=== PATIENT | male | born 1950 | race Caucasian/White ===

== ENCOUNTER 2016-07-22 15:26 | Inpatient (IN) | payer OTHER ==
[2016-07-22 16:48] VITALS: BMI 22.5
--- NOTE | 2016-07-22 17:16 | HP ---
CIWA Score - CIWA Score Nausea/Vomitin-Mild Nausea/No Vomiting Muscle Tremors: 4-Moderate,w/Arms Extend Anxiety: 4-Mod. Anxious/Guarded Agitation: 4-Moderately Restless Paroxysmal Sweats: 2 Orientation: 3-Disoriented Date>2 days Tacttile Disturbances: 0-None Auditory Disturbances: 0-None Visual Disturbances: 0-None Headache: 2-Mild CIWA-Ar Total Score: 20 Admission ROS BHS - HPI Chief Complaint: WITHDRAWAL SX Allergies/Adverse Reactions: Allergies Allergy/AdvReac Type Severity Reaction Status Date / Time No Known Allergies Allergy Verified 07/22/16 17:06 History of Present Illness: 66 YEARS OLD MALE WITH LONG HISTORY OF ALCOHOL NICOTINE DEPENDENCE, HYPERTENSION DEPRESSION IS ADMITTED TO DETOX Exam Limitations: No Limitations - Ebola screening Have you traveled outside of the country in the last 21 days: No Have you had contact with anyone from an Ebola affected area: No Have you been sick,other than usual withdrawal symptoms: No Do you have a fever: No - Review of Systems Constitutional: Chills, Changes in sleep, Weight Stable EENT: reports: No Symptoms Reported Respiratory: reports: No Symptoms reported Cardiac: reports: Palpitations GI: reports: Nausea, Poor Fluid Intake, Indigestion, Abdominal cramping : reports: No Symptoms Reported Musculoskeletal: reports: Back Pain Integumentary: reports: Rash (GENERAL WHOLE BODY) Neuro: reports: Tremors Endocrine: reports: No Symptoms Reported Hematology: reports: No Symptoms Reported Psychiatric: reports: Judgement Intact, Depressed Other Systems: Reviewed and Negative Patient History - Patient Medical History Hx Anemia: No Hx Asthma: No Hx Chronic Obstructive Pulmonary Disease (COPD): No Hx Cancer: No Hx Cardiac Disorders: No Hx Congestive Heart Failure: No Hx Hypertension: Yes Hx Hypercholesterolemia: No Hx Pacemaker: No HX Cerebrovascular Accident: No Hx Seizures: No Hx Dementia: No Hx Diabetes: No Hx Gastrointestinal Disorders: No Hx Liver Disease: No Hx Genitourinary Disorders: No Hx Sexually Transmitted Disorders: No Hx Renal Disease (ESRD): No Hx Thyroid Disease: No Hx Human Immunodeficiency Virus (HIV): No Hx Hepatitis C: No Hx Depression: Yes Hx Suicide Attempt: No Hx Bipolar Disorder: No Hx Schizophrenia: No - Patient Surgical History Past Surgical History: No - PPD History Previous Implant?: Yes Documented Results: Negative w/o proof Implanted On Prior [facility] Admission?: No PPD to be Administered?: Yes - Smoking Cessation Smoking history: Current every day smoker Have you smoked in the past 12 months: Yes Aproximately how many cigarettes per day: 10 Cigars Per Day: 0 Hx Chewing Tobacco Use: No Initiated information on smoking cessation: Yes 'Breaking Loose' booklet given: 07/22/16 - Substance & Tx. History Hx Alcohol Use: Yes Hx Substance Use: No Substance Use Type: Alcohol Hx Substance Use Treatment: Yes - Substances Abused Alcohol Route: Oral Frequency: Daily Amount used: LIQUOR- 2 PINTS Age of first use: 19 Date of Last Use: 07/22/16 Family Disease History - Family Disease History Family Disease History: Respiratory: Grandparent (), Other: Father (NO CONTACT), Mother () Other Family History: ONLY CHILD Admission Physical Exam S - Vital Signs Vital Signs: Vital Signs - 24 hr 07/22/16 16:44 Temperature 97.4 F L Pulse Rate 115 H Respiratory 16 Rate Blood Pressure 158/94 - Physical General Appearance: Yes: Appropriately Dressed, Moderate Distress, Alcohol on Breath, Thin, Tremorous, Irritable, Sweating, Anxious HEENTM: Yes: Hearing grossly Normal, Normal ENT Inspection, Normocephalic, Normal Voice Respiratory: Yes: Chest Non-Tender, Lungs Clear, Normal Breath Sounds, No Respiratory Distress, No Accessory Muscle Use Neck: Yes: Supple, Trachea in good position Breast: Yes: Breasts Symetrical Cardiology: Yes: Regular Rhythm, S1, S2, Tachycardia Abdominal: Yes: Non Tender, Soft Genitourinary: Yes: Within Normal Limits Back: Yes: Normal Inspection Musculoskeletal: Yes: full range of Motion, Gait Steady Extremities: Yes: Non-Tender, Tremors Neurological: Yes: Alert, Motor Strength 5/5, Normal Response, Depressed Affect Integumentary: Yes: Warm, Rash Lymphatic: Yes: Within Normal Limits - Diagnostic (1) Alcohol dependence with uncomplicated withdrawal Current Visit: Yes Status: Acute (2) Nicotine dependence Current Visit: Yes Status: Acute Qualifiers: Nicotine product type: cigarettes Substance use status: uncomplicated Qualified Code(s): F17.210 - Nicotine dependence, cigarettes, uncomplicated (3) Hypertension Current Visit: Yes Status: Acute Qualifiers: Hypertension type: essential hypertension Qualified Code(s): I10 - Essential (primary) hypertension (4) Arthritis Current Visit: Yes Status: Acute Comment: KNEES AND HIPS (5) Depression Current Visit: Yes Status: Suspected (6) Weight loss Current Visit: Yes Status: Acute Comment: MOTHER 3 YEARS AGO SEVERE DEPRESSION - 106 LBS X 01/2016 - TREATED AT [facility] (7) Anemia Current Visit: Yes Status: Chronic Qualifiers: Anemia type: iron deficiency (8) Cardiac mass Current Visit: Yes Status: Chronic Comment: NO TREATMENT (9) S/P coronary angiogram Current Visit: Yes Status: Resolved Comment: RESULT UNKNOWN (10) Dermatitis Current Visit: Yes Status: Acute Comment: HYDROCORTISON + EUCERIN AMMONIA PENDING (11) History of blood clots Current Visit: Yes Status: Resolved Comment: TREATED WITH "BLOOD THINER" 01/2016 INR PENDING (12) History of low potassium Current Visit: Yes Status: Resolved Comment: TREATED WITH POTASSIUM 01/2016 (13) Magnesium deficiency Current Visit: Yes Status: Resolved Comment: TREATED WITH MAGNESIUM 01/2016 Cleared for Admission [facility] - Detox or Rehab [facility] Level of Care: Medically Managed Detox Regimen/Protocol: Librium [facility] Breath Alcohol Content Breath Alcohol Content: 0.247 Vital Signs - Vital Signs Vital Signs Refused: No Temperature Source: Oral Pulse Rate: 115 Respiratory Rate: 16 Blood Pressure: 158/94 BP Location: Left Arm Blood Pressure Position: Sitting - Height Height: 5 ft 8 in - Weight Weight: 148 lb Weight Measurement Method: Standing Scale Body Mass Index (BMI): 22.5 - Bowel Function Bowel Movement: No Urine Drug Screen - Control Is Test Valid: Yes - Results Drug Screen Negative: Yes
[2016-07-22] MEDS ORDERED: MAGNESIUM HYDROX 2400MG/30ML ORAL SUSPENSION 30 ML CUP PO PRN (17:24)
[2016-07-22] MEDS ORDERED: MAGNESIUM CITRATE 300 ML BOTTLE PO PRN (17:24)
[2016-07-22] MEDS ORDERED: chlordiazePOXIDE HCL 25 MG CAPSULE PO PRN (17:24)
[2016-07-22] MEDS ORDERED: P-EPHED 60MG/TRIPROLIDI 2.5MG TABLET PO PRN (17:24)
[2016-07-22] MEDS ORDERED: MAG HYDROX/AL HYDROX/SIMETH 30 ML UNIT-DOSE CUP PO PRN (17:24)
[2016-07-22] MEDS ORDERED: LOPERAMIDE HCL 2 MG CAPSULE PO PRN (17:24)
[2016-07-22] MEDS ORDERED: MENTHOL/PHENOL 1 EACH UD MM PRN (17:24)
[2016-07-22] MEDS ORDERED: hydrOXYzine PAMOATE 50 MG CAPSULE (FP) PO PRN (17:24)
[2016-07-22] MEDS ORDERED: NICOTINE POLACRILEX 2 MG GUM BUC PRN (17:24)
[2016-07-22] MEDS ORDERED: guaiFENesin/D-METHORPHAN HB 10 ML UNIT-DOSE CUPS PO PRN (17:24)
[2016-07-22] MEDS ORDERED: ACETAMINOPHEN 325 MG TABLET (FP) PO PRN (17:24)
[2016-07-22] MEDS ORDERED: COLLOIDAL OATMEAL 1 BAR EACH TP PRN (17:31)
[2016-07-22] MEDS ORDERED: cloNIDine HCL 0.1 MG TABLET PO PRN (17:44)
[2016-07-22] MEDS ORDERED: chlordiazePOXIDE HCL 25 MG CAPSULE PO ONE (18:15)
[2016-07-22] MEDS: HYDROCORTISONE 1% TOPICAL OINT 30 GM TUBE TP SCH ×2 (21:02→21:09)
[2016-07-22] MEDS: RANITIDINE HCL 150 MG TABLET (FP) PO SCH (21:08)
[2016-07-22] MEDS: amLODIPine BESYLATE 5 MG TABLET (FP) PO SCH (21:08)
[2016-07-22] MEDS: THIAMINE HCL 100 MG TABLET (FP) PO SCH (21:08)
[2016-07-22] MEDS: chlordiazePOXIDE HCL 25 MG CAPSULE PO SCH ×2 (22:01→23:05)
[2016-07-22] MEDS: diphenhydrAMINE HCL 50 MG CAPSULE PO PRN (22:05)
[2016-07-23] MEDS: chlordiazePOXIDE HCL 25 MG CAPSULE PO SCH ×4 (05:43→22:22)
[2016-07-23] MEDS ORDERED: SELENIUM SULFIDE 2.5% LOTION 4 OZ. TP SCH (10:00)
[2016-07-23] MEDS: PRENATAL VITAMINS W/ FOLIC ACID TABLET (FP) PO SCH (10:22)
[2016-07-23] MEDS: amLODIPine BESYLATE 5 MG TABLET (FP) PO SCH ×2 (10:23→22:22)
[2016-07-23] MEDS: RANITIDINE HCL 150 MG TABLET (FP) PO SCH (10:23)
[2016-07-23] MEDS: NICOTINE 14 MG/24 HOURS TOPICAL PATCH TD SCH (10:24)
[2016-07-23] MEDS: HYDROCORTISONE 1% TOPICAL OINT 30 GM TUBE TP SCH ×4 (10:24→22:22)
[2016-07-23] MEDS: ASPIRIN 81 MG CHEWABLE TABLETS PO SCH (10:25)
[2016-07-23 10:54] LABS: MCH 32.9 pg (25.7-33.7); MCHC 33.4 g/dl (32.0-35.9); MEAN CELL VOLUME 98.6 fl (80-96); MEAN PLT VOLUME 8.9 fl (7.5-11.1); PLATELET COUNT 134 K/MM3 (134-434); RDW 16.3 % (11.9-15.9); WHITE BLOOD COUNT 8.2 K/mm3 (4.0-10.0)
[2016-07-23 11:09] LABS: INR 0.86 (0.82-1.09); PROTHROMBIN TIME (PATIENT) 9.4 SEC (9.98-11.88)
[2016-07-23 11:14] LABS: ALBUMIN 3.2 g/dl (3.4-5.0); BILIRUBIN,TOTAL 0.9 mg/dL (0.2-1.0); CALCIUM 8.8 mg/dL (8.5-10.1); CREATININE 1.5 mg/dL (0.7-1.3); TOT PROT 6.6 g/dl (6.4-8.2)
--- NOTE | 2016-07-23 13:21 | CONSULT ---
[facility] Psychiatric Consult - Data Date of interview: 07/23/16 Admission source: [facility] Identifying data: First admission to [facility] for this 66 y/o male seeking detox treatment on for alcohol dependence.Patient is single without children,homeless,unemployed and supported on Social Security/Pension benefits. Substance Abuse History: - Smoking Cessation. Smoking history: Current every day smoker. Have you smoked in the past 12 months: Yes. Aproximately how many cigarettes per day: 10. Cigars Per Day: 0. Hx Chewing Tobacco Use: No. Initiated information on smoking cessation: Yes. 'Breaking Loose' booklet given : 07/22/16. - Substance & Tx. History. Hx Alcohol Use: Yes. Hx Substance Use : No. Substance Use Type: Alcohol. Hx Substance Use Treatment: Yes. - Substances Abused. Alcohol. Route: Oral. Frequency: Daily. Amount used: LIQUOR- 2 PINTS. Age of first use: 19. Date of Last Use: 07/22/16. Confirmed by patient. Medical History: Significant for a history of hypertension,GERD and arthritis. Psychiatric History: Patient denies history of psychiatric illness.He indicates that he sees a therapist at a clinic,in the community,for psychotherapy.Not on psychotropic medications.Mr Sheets states that he gets " counseling " for anxiety and depression." He declines option of psychopharmacotherapy.No history of suicide attempts. Physical/Sexual Abuse/Trauma History: Patient denies. Additional Comment: Drug Screen Negative: Yes Mental Status Exam - Mental Status Exam Alert and Oriented to: Time, Place, Person Cognitive Function: Good Patient Appearance: Unkempt, Disheveled Mood: Hopeful, Euthymic Affect: Appropriate, Normal Range Patient Behavior: Fatigued, Appropriate, Cooperative Speech Pattern: Clear, Appropriate Voice Loudness: Normal Thought Process: Goal Oriented Thought Disorder: Not Present Hallucinations: Denies Suicidal Ideation: Denies Homicidal Ideation: Denies Insight/Judgement: Fair Sleep: Well Appetite: Good Muscle strength/Tone: Normal Gait/Station: Normal Psychiatric Findings - Problem List ([place] 1, 2,3) (1) Alcohol dependence with uncomplicated withdrawal Current Visit: Yes Status: Acute (2) Alcohol-induced mood disorder Current Visit: Yes Status: Acute (3) Nicotine dependence Current Visit: Yes Status: Acute Qualifiers: Nicotine product type: cigarettes Substance use status: uncomplicated Qualified Code(s): F17.210 - Nicotine dependence, cigarettes, uncomplicated (4) Arthritis Current Visit: Yes Status: Chronic Comment: KNEES AND HIPS (5) Hypertension Current Visit: Yes Status: Chronic Qualifiers: Hypertension type: essential hypertension Qualified Code(s): I10 - Essential (primary) hypertension (6) Anemia Current Visit: Yes Status: Chronic Qualifiers: Anemia type: iron deficiency - Initial Treatment Plan Initial Treatment Plan: Psychoeducation.Detoxification.Observation.
--- NOTE | 2016-07-23 15:53 | PN ---
[facility] CIWA - CIWA Score Nausea/Vomitin-Mild Nausea/No Vomiting Muscle Tremors: 4-Moderate,w/Arms Extend Anxiety: 3 Agitation: 4-Moderately Restless Paroxysmal Sweats: 3 Orientation: 0-Oriented Tacttile Disturbances: 1-Very Mild Itch/Numbness Auditory Disturbances: 0-None Visual Disturbances: 0-None Headache: 0-None Present CIWA-Ar Total Score: 16 BHS Progress Note (SOAP) Subjective: ANXIETY,TREMORS,SWEATING,INTERRUPTED SLEEP,RESTLESS Objective: 07/23/16 15:52 Vital Signs - 8 hr 07/23/16 07/23/16 10:37 13:50 Temperature 98.9 F 98.6 F Pulse Rate 113 H 86 Respiratory 20 20 Rate Blood Pressure 138/84 124/79 Laboratory Last Values WBC 8.2 K/mm3 (4.0-10.0) 07/23/16 06:30 RBC 3.66 M/mm3 (4.00-5.60) L 07/23/16 06:30 Hgb 12.1 GM/dL (11.7-16.9) 07/23/16 06:30 Hct 36.1 % (35.4-49) 07/23/16 06:30 MCV 98.6 fl (80-96) H 07/23/16 06:30 MCHC 33.4 g/dl (32.0-35.9) 07/23/16 06:30 RDW 16.3 % (11.9-15.9) H 07/23/16 06:30 Plt Count 134 K/MM3 (134-434) 07/23/16 06:30 MPV 8.9 fl (7.5-11.1) 07/23/16 06:30 INR 0.86 (0.82-1.09) 07/23/16 06:30 Sodium 139 mmol/L (136-145) 07/23/16 06:30 Potassium 4.3 mmol/L (3.5-5.1) 07/23/16 06:30 Chloride 104 mmol/L (98-107) 07/23/16 06:30 Carbon Dioxide 27 mmol/L (21-32) 07/23/16 06:30 Anion Gap 8 (8-16) 07/23/16 06:30 BUN 28 mg/dL (7-18) H 07/23/16 06:30 Creatinine 1.5 mg/dL (0.7-1.3) H 07/23/16 06:30 Creat Clearance w eGFR 46.97 (>60) 07/23/16 06:30 Random Glucose 98 mg/dL (74-106) 07/23/16 06:30 Calcium 8.8 mg/dL (8.5-10.1) 07/23/16 06:30 Total Bilirubin 0.9 mg/dL (0.2-1.0) 07/23/16 06:30 AST 109 U/L (15-37) H 07/23/16 06:30 ALT 60 U/L (12-78) 07/23/16 06:30 Alkaline Phosphatase 162 U/L (45-117) H 07/23/16 06:30 Ammonia 56.79 umol/L (11-32) H 07/23/16 06:30 Total Protein 6.6 g/dl (6.4-8.2) 07/23/16 06:30 Albumin 3.2 g/dl (3.4-5.0) L 07/23/16 06:30 RPR Titer Nonreactive (NONREACTIVE) 07/23/16 06:30 LABS NOTED Assessment: 07/23/16 15:52 WITHDRAWAL SX. Plan: CONTINUE DETOX
[2016-07-23] MEDS ORDERED: SELENIUM SULFIDE 2.5% LOTION 4 OZ. TP ONE (18:45)
[2016-07-23 20:17] LABS: URINE APPEARANCE CLEAR; URINE BILIRUBIN NEGATIVE (NEGATIVE); URINE COLOR STRAW; URINE GLUCOSE (UA) NEGATIVE (NEGATIVE); URINE KETONE NEGATIVE (NEGATIVE); URINE LEUK ESTERASE NEGATIVE (NEGATIVE); URINE NITRITE NEGATIVE (NEGATIVE); URINE PROTEIN NEGATIVE (NEGATIVE); URINE UROBILINOGEN NEGATIVE E.U./dl (0.2-1.0)
[2016-07-23 20:22] LABS: URINE BLOOD 2+ (NEGATIVE)
[2016-07-23 20:48] LABS: URINE RBC 1 /hpf (0-3); URINE WBC <1 /hpf (3-5)
[2016-07-23] MEDS: diphenhydrAMINE HCL 50 MG CAPSULE PO PRN (22:22)
[2016-07-23] MEDS: THIAMINE HCL 100 MG TABLET (FP) PO SCH (22:22)
[2016-07-24] MEDS: chlordiazePOXIDE HCL 25 MG CAPSULE PO SCH ×3 (05:29→18:04)
[2016-07-24] MEDS: PRENATAL VITAMINS W/ FOLIC ACID TABLET (FP) PO SCH (10:34)
[2016-07-24] MEDS: RANITIDINE HCL 150 MG TABLET (FP) PO SCH (10:34)
[2016-07-24] MEDS: amLODIPine BESYLATE 5 MG TABLET (FP) PO SCH ×2 (10:34→22:41)
[2016-07-24] MEDS: ASPIRIN 81 MG CHEWABLE TABLETS PO SCH (10:34)
[2016-07-24] MEDS: HYDROCORTISONE 1% TOPICAL OINT 30 GM TUBE TP SCH ×4 (10:35→22:41)
[2016-07-24] MEDS: NICOTINE 14 MG/24 HOURS TOPICAL PATCH TD SCH (10:35)
--- NOTE | 2016-07-24 10:37 | PN ---
[facility] CIWA - CIWA Score Nausea/Vomitin-No Nausea/No Vomiting Muscle Tremors: 3 Anxiety: 3 Agitation: 3 Paroxysmal Sweats: 3 Orientation: 0-Oriented Tacttile Disturbances: 1-Very Mild Itch/Numbness Auditory Disturbances: 0-None Visual Disturbances: 0-None Headache: 0-None Present CIWA-Ar Total Score: 13 BHS Progress Note (SOAP) Subjective: SWEATING,ANXIETY,TREMORS,INTERRUPTED SLEEP,RESTLESS. Objective: 07/24/16 10:33 Vital Signs - 8 hr 07/24/16 07/24/16 07/24/16 03:30 06:12 10:11 Temperature 98.7 F 96.7 F L Pulse Rate 96 H 108 H Respiratory 18 16 18 Rate Blood Pressure 158/90 153/67 Laboratory Last Values WBC 8.2 K/mm3 (4.0-10.0) 07/23/16 06:30 RBC 3.66 M/mm3 (4.00-5.60) L 07/23/16 06:30 Hgb 12.1 GM/dL (11.7-16.9) 07/23/16 06:30 Hct 36.1 % (35.4-49) 07/23/16 06:30 MCV 98.6 fl (80-96) H 07/23/16 06:30 MCHC 33.4 g/dl (32.0-35.9) 07/23/16 06:30 RDW 16.3 % (11.9-15.9) H 07/23/16 06:30 Plt Count 134 K/MM3 (134-434) 07/23/16 06:30 MPV 8.9 fl (7.5-11.1) 07/23/16 06:30 INR 0.86 (0.82-1.09) 07/23/16 06:30 Sodium 139 mmol/L (136-145) 07/23/16 06:30 Potassium 4.3 mmol/L (3.5-5.1) 07/23/16 06:30 Chloride 104 mmol/L (98-107) 07/23/16 06:30 Carbon Dioxide 27 mmol/L (21-32) 07/23/16 06:30 Anion Gap 8 (8-16) 07/23/16 06:30 BUN 28 mg/dL (7-18) H 07/23/16 06:30 Creatinine 1.5 mg/dL (0.7-1.3) H 07/23/16 06:30 Creat Clearance w eGFR 46.97 (>60) 07/23/16 06:30 Random Glucose 98 mg/dL (74-106) 07/23/16 06:30 Calcium 8.8 mg/dL (8.5-10.1) 07/23/16 06:30 Total Bilirubin 0.9 mg/dL (0.2-1.0) 07/23/16 06:30 AST 109 U/L (15-37) H 07/23/16 06:30 ALT 60 U/L (12-78) 07/23/16 06:30 Alkaline Phosphatase 162 U/L (45-117) H 07/23/16 06:30 Ammonia 56.79 umol/L (11-32) H 07/23/16 06:30 Total Protein 6.6 g/dl (6.4-8.2) 07/23/16 06:30 Albumin 3.2 g/dl (3.4-5.0) L 07/23/16 06:30 Urine Color Straw 07/23/16 19:30 Urine Appearance Clear 07/23/16 19:30 Urine pH 8.0 (5.0-8.0) 07/23/16 19:30 Ur Specific [place] 1.005 (1.001-1.035) 07/23/16 19:30 Urine Protein Negative (NEGATIVE) 07/23/16 19:30 Urine Glucose (UA) Negative (NEGATIVE) 07/23/16 19:30 Urine Ketones Negative (NEGATIVE) 07/23/16 19:30 Urine Blood 2+ (NEGATIVE) H 07/23/16 19:30 Urine Nitrite Negative (NEGATIVE) 07/23/16 19:30 Urine Bilirubin Negative (NEGATIVE) 07/23/16 19:30 Urine Urobilinogen Negative E.U./dl (0.2-1.0) 07/23/16 19:30 Ur Leukocyte Esterase Negative (NEGATIVE) 07/23/16 19:30 Urine RBC 1 /hpf (0-3) 07/23/16 19:30 Urine WBC <1 /hpf (3-5) 07/23/16 19:30 Ur Epithelial Cells Rare /hpf (FEW) 07/23/16 19:30 RPR Titer Nonreactive (NONREACTIVE) 07/23/16 06:30 Hepatitis C Antibody <0.1 s/co ratio (0.0-0.9) 07/23/16 06:30 LABS NOTED Assessment: 07/24/16 10:36 WITHDRAWAL SX. Plan: CONTINUE DETOX
[2016-07-24] MEDS: LACTULOSE 20 GM/30 ML UDC (FOR ORAL USE ONLY) PO SCH ×2 (13:30→22:40)
[2016-07-24] MEDS: THIAMINE HCL 100 MG TABLET (FP) PO SCH (22:40)
[2016-07-24] MEDS: chlordiazePOXIDE 5 MG CAPSULE PO SCH (22:41)
[2016-07-24] MEDS: diphenhydrAMINE HCL 50 MG CAPSULE PO PRN (22:43)
[2016-07-25] MEDS: chlordiazePOXIDE 5 MG CAPSULE PO SCH ×3 (05:31→18:10)
[2016-07-25 10:02] LABS: ALBUMIN 3.5 g/dl (3.4-5.0); ANION GAP 7 (8-16); CALCIUM 8.6 mg/dL (8.5-10.1); CO2 30 mmol/L (21-32); GLUCOSE,RANDOM 113 mg/dL (74-106)
[2016-07-25 10:09] LABS: ALK PHOS 223 U/L (45-117); BILIRUBIN,TOTAL 1.3 mg/dL (0.2-1.0); CREATININE 1.2 mg/dL (0.7-1.3); SGOT/AST 245 U/L (15-37); SGPT/ALT 151 U/L (12-78); TOT PROT 7.2 g/dl (6.4-8.2)
[2016-07-25] MEDS: ASPIRIN 81 MG CHEWABLE TABLETS PO SCH (10:32)
[2016-07-25] MEDS: PRENATAL VITAMINS W/ FOLIC ACID TABLET (FP) PO SCH (10:32)
[2016-07-25] MEDS: amLODIPine BESYLATE 5 MG TABLET (FP) PO SCH ×2 (10:32→22:40)
[2016-07-25] MEDS: RANITIDINE HCL 150 MG TABLET (FP) PO SCH (10:32)
[2016-07-25] MEDS: LACTULOSE 20 GM/30 ML UDC (FOR ORAL USE ONLY) PO SCH ×2 (10:33→22:40)
[2016-07-25] MEDS: NICOTINE 14 MG/24 HOURS TOPICAL PATCH TD SCH (10:33)
[2016-07-25] MEDS: HYDROCORTISONE 1% TOPICAL OINT 30 GM TUBE TP SCH ×4 (10:35→22:41)
--- NOTE | 2016-07-25 15:07 | PN ---
BHS Progress Note (SOAP) Subjective: Tremors, body aches. Objective: 07/25/16 15:06 Vital Signs Temperature 96.0 F L 07/25/16 13:58 Pulse Rate 114 H 07/25/16 13:58 Respiratory Rate 16 07/25/16 13:58 Blood Pressure 136/86 07/25/16 13:58 O2 Sat by Pulse Oximetry (%) Laboratory Last Values WBC 8.2 K/mm3 (4.0-10.0) 07/23/16 06:30 RBC 3.66 M/mm3 (4.00-5.60) L 07/23/16 06:30 Hgb 12.1 GM/dL (11.7-16.9) 07/23/16 06:30 Hct 36.1 % (35.4-49) 07/23/16 06:30 MCV 98.6 fl (80-96) H 07/23/16 06:30 MCHC 33.4 g/dl (32.0-35.9) 07/23/16 06:30 RDW 16.3 % (11.9-15.9) H 07/23/16 06:30 Plt Count 134 K/MM3 (134-434) 07/23/16 06:30 MPV 8.9 fl (7.5-11.1) 07/23/16 06:30 INR 0.86 (0.82-1.09) 07/23/16 06:30 Sodium 140 mmol/L (136-145) 07/25/16 07:20 Potassium 3.9 mmol/L (3.5-5.1) 07/25/16 07:20 Chloride 103 mmol/L (98-107) 07/25/16 07:20 Carbon Dioxide 30 mmol/L (21-32) 07/25/16 07:20 Anion Gap 7 (8-16) L 07/25/16 07:20 BUN 20 mg/dL (7-18) H D 07/25/16 07:20 Creatinine 1.2 mg/dL (0.7-1.3) 07/25/16 07:20 Creat Clearance w eGFR > 60 (>60) 07/25/16 07:20 Random Glucose 113 mg/dL (74-106) H 07/25/16 07:20 Calcium 8.6 mg/dL (8.5-10.1) 07/25/16 07:20 Total Bilirubin 1.3 mg/dL (0.2-1.0) H D 07/25/16 07:20 AST 245 U/L (15-37) H D 07/25/16 07:20 ALT 151 U/L (12-78) H D 07/25/16 07:20 Alkaline Phosphatase 223 U/L (45-117) H D 07/25/16 07:20 Ammonia 56.79 umol/L (11-32) H 07/23/16 06:30 Total Protein 7.2 g/dl (6.4-8.2) 07/25/16 07:20 Albumin 3.5 g/dl (3.4-5.0) 07/25/16 07:20 Urine Color Straw 07/23/16 19:30 Urine Appearance Clear 07/23/16 19:30 Urine pH 8.0 (5.0-8.0) 07/23/16 19:30 Ur Specific [place] 1.005 (1.001-1.035) 07/23/16 19:30 Urine Protein Negative (NEGATIVE) 07/23/16 19:30 Urine Glucose (UA) Negative (NEGATIVE) 07/23/16 19:30 Urine Ketones Negative (NEGATIVE) 07/23/16 19:30 Urine Blood 2+ (NEGATIVE) H 07/23/16 19:30 Urine Nitrite Negative (NEGATIVE) 07/23/16 19:30 Urine Bilirubin Negative (NEGATIVE) 07/23/16 19:30 Urine Urobilinogen Negative E.U./dl (0.2-1.0) 07/23/16 19:30 Ur Leukocyte Esterase Negative (NEGATIVE) 07/23/16 19:30 Urine RBC 1 /hpf (0-3) 07/23/16 19:30 Urine WBC <1 /hpf (3-5) 07/23/16 19:30 Ur Epithelial Cells Rare /hpf (FEW) 07/23/16 19:30 RPR Titer Nonreactive (NONREACTIVE) 07/23/16 06:30 Hepatitis C Antibody <0.1 s/co ratio (0.0-0.9) 07/23/16 06:30 LABS NOTED. Assessment: 07/25/16 15:07 WITHDRAWAL SYMPTOMS. Plan: CONTINUE DETOX.
[2016-07-25] MEDS: chlordiazePOXIDE HCL 10 MG CAPSULE PO SCH (22:40)
[2016-07-25] MEDS: THIAMINE HCL 100 MG TABLET (FP) PO SCH (22:40)
[2016-07-25] MEDS: diphenhydrAMINE HCL 50 MG CAPSULE PO PRN (22:43)
[2016-07-26] MEDS: chlordiazePOXIDE HCL 10 MG CAPSULE PO SCH ×3 (05:33→18:20)
--- NOTE | 2016-07-26 09:07 | PN ---
[facility]HS Progress Note (SOAP) Subjective: SWEATING,RESTLESS.LIVER ENZYMES ARE ELEVATED. Objective: 07/26/16 09:06 Vital Signs - 8 hr 07/26/16 07/26/16 03:30 06:21 Temperature 97.5 F L Pulse Rate 105 H Respiratory 18 18 Rate Blood Pressure 130/86 Laboratory Tests 07/23/16 07/23/16 07/23/16 06:30 06:30 06:30 WBC 8.2 RBC 3.66 L Hgb 12.1 Hct 36.1 MCV 98.6 H MCHC 33.4 RDW 16.3 H Plt Count 134 MPV 8.9 INR 0.86 Sodium 139 Potassium 4.3 Chloride 104 Carbon Dioxide 27 Anion Gap 8 BUN 28 H Creatinine 1.5 H Creat Clearance w eGFR 46.97 Random Glucose 98 Calcium 8.8 Total Bilirubin 0.9 AST 109 H ALT 60 Alkaline Phosphatase 162 H Ammonia Total Protein 6.6 Albumin 3.2 L Urine Color Urine Appearance Urine pH Ur Specific [place] Urine Protein Urine Glucose (UA) Urine Ketones Urine Blood Urine Nitrite Urine Bilirubin Urine Urobilinogen Ur Leukocyte Esterase Urine RBC Urine WBC Ur Epithelial Cells RPR Titer Hepatitis C Antibody 07/23/16 07/23/16 07/23/16 06:30 06:30 06:30 WBC RBC Hgb Hct MCV MCHC RDW Plt Count MPV INR Sodium Potassium Chloride Carbon Dioxide Anion Gap BUN Creatinine Creat Clearance w eGFR Random Glucose Calcium Total Bilirubin AST ALT Alkaline Phosphatase Ammonia 56.79 H Total Protein Albumin Urine Color Urine Appearance Urine pH Ur Specific [place] Urine Protein Urine Glucose (UA) Urine Ketones Urine Blood Urine Nitrite Urine Bilirubin Urine Urobilinogen Ur Leukocyte Esterase Urine RBC Urine WBC Ur Epithelial Cells RPR Titer Nonreactive Hepatitis C Antibody <0.1 07/23/16 07/25/16 19:30 07:20 WBC RBC Hgb Hct MCV MCHC RDW Plt Count MPV INR Sodium 140 Potassium 3.9 Chloride 103 Carbon Dioxide 30 Anion Gap 7 L BUN 20 H D Creatinine 1.2 Creat Clearance w eGFR > 60 Random Glucose 113 H Calcium 8.6 Total Bilirubin 1.3 H D AST 245 H D ALT 151 H D Alkaline Phosphatase 223 H D Ammonia Total Protein 7.2 Albumin 3.5 Urine Color Straw Urine Appearance Clear Urine pH 8.0 Ur Specific [place] 1.005 Urine Protein Negative Urine Glucose (UA) Negative Urine Ketones Negative Urine Blood 2+ H Urine Nitrite Negative Urine Bilirubin Negative Urine Urobilinogen Negative Ur Leukocyte Esterase Negative Urine RBC 1 Urine WBC <1 Ur Epithelial Cells Rare RPR Titer Hepatitis C Antibody LABS NOTED,WE'LL REPEAT LIVER ENZYMES Assessment: 07/26/16 09:07 WITHDRAWAL SX. Plan: CONTINUE DETOX
[2016-07-26] MEDS: PRENATAL VITAMINS W/ FOLIC ACID TABLET (FP) PO SCH (10:33)
[2016-07-26] MEDS: ASPIRIN 81 MG CHEWABLE TABLETS PO SCH (10:33)
[2016-07-26] MEDS: amLODIPine BESYLATE 5 MG TABLET (FP) PO SCH ×2 (10:33→22:39)
[2016-07-26] MEDS: NICOTINE 14 MG/24 HOURS TOPICAL PATCH TD SCH (10:34)
[2016-07-26] MEDS: LACTULOSE 20 GM/30 ML UDC (FOR ORAL USE ONLY) PO SCH ×2 (10:36→22:39)
[2016-07-26] MEDS: HYDROCORTISONE 1% TOPICAL OINT 30 GM TUBE TP SCH ×4 (10:37→22:41)
[2016-07-26] MEDS: RANITIDINE HCL 150 MG TABLET (FP) PO SCH (10:38)
[2016-07-26] MEDS: THIAMINE HCL 100 MG TABLET (FP) PO SCH (22:39)
[2016-07-27 06:47] VITALS: BP 146/89; PULSE 97; TEMP 97
--- NOTE | 2016-07-27 09:22 | DS ---
[facility] Detox Discharge Summary Admission Date: 07/22/16 Discharge Date: 07/27/16 - History Present History: Alcohol Dependence Pertinent Past History: HTN - Physical Exam Results Vital Signs: Vital Signs Temperature 97 F L 07/27/16 06:46 Pulse Rate 97 H 07/27/16 06:46 Respiratory Rate 18 07/27/16 06:46 Blood Pressure 146/89 07/27/16 06:46 O2 Sat by Pulse Oximetry (%) Pertinent Admission Physical Exam Findings: WITHDRAWAL SX. Laboratory Tests 07/23/16 07/23/16 07/23/16 06:30 06:30 06:30 WBC 8.2 RBC 3.66 L Hgb 12.1 Hct 36.1 MCV 98.6 H MCHC 33.4 RDW 16.3 H Plt Count 134 MPV 8.9 INR 0.86 Sodium 139 Potassium 4.3 Chloride 104 Carbon Dioxide 27 Anion Gap 8 BUN 28 H Creatinine 1.5 H Creat Clearance w eGFR 46.97 Random Glucose 98 Calcium 8.8 Total Bilirubin 0.9 AST 109 H ALT 60 Alkaline Phosphatase 162 H Ammonia Total Protein 6.6 Albumin 3.2 L Urine Color Urine Appearance Urine pH Ur Specific [place] Urine Protein Urine Glucose (UA) Urine Ketones Urine Blood Urine Nitrite Urine Bilirubin Urine Urobilinogen Ur Leukocyte Esterase Urine RBC Urine WBC Ur Epithelial Cells RPR Titer Hepatitis C Antibody 07/23/16 07/23/16 07/23/16 06:30 06:30 06:30 WBC RBC Hgb Hct MCV MCHC RDW Plt Count MPV INR Sodium Potassium Chloride Carbon Dioxide Anion Gap BUN Creatinine Creat Clearance w eGFR Random Glucose Calcium Total Bilirubin AST ALT Alkaline Phosphatase Ammonia 56.79 H Total Protein Albumin Urine Color Urine Appearance Urine pH Ur Specific [place] Urine Protein Urine Glucose (UA) Urine Ketones Urine Blood Urine Nitrite Urine Bilirubin Urine Urobilinogen Ur Leukocyte Esterase Urine RBC Urine WBC Ur Epithelial Cells RPR Titer Nonreactive Hepatitis C Antibody <0.1 07/23/16 07/25/16 19:30 07:20 WBC RBC Hgb Hct MCV MCHC RDW Plt Count MPV INR Sodium 140 Potassium 3.9 Chloride 103 Carbon Dioxide 30 Anion Gap 7 L BUN 20 H D Creatinine 1.2 Creat Clearance w eGFR > 60 Random Glucose 113 H Calcium 8.6 Total Bilirubin 1.3 H D AST 245 H D ALT 151 H D Alkaline Phosphatase 223 H D Ammonia Total Protein 7.2 Albumin 3.5 Urine Color Straw Urine Appearance Clear Urine pH 8.0 Ur Specific [place] 1.005 Urine Protein Negative Urine Glucose (UA) Negative Urine Ketones Negative Urine Blood 2+ H Urine Nitrite Negative Urine Bilirubin Negative Urine Urobilinogen Negative Ur Leukocyte Esterase Negative Urine RBC 1 Urine WBC <1 Ur Epithelial Cells Rare RPR Titer Hepatitis C Antibody LABS NOTED,PT. REFUSED REPEAT LIVER ENZYMES ORDERED ON 07/26/16. COPY OF LABS GIVEN FOR HIS DOCTOR. - Treatment Hospital Course: Detox Protocol Followed, Detoxed Safely, Responded well, Discharged Condition Good, Rehab Referral Accepted - Medication Discharge Medications: Ambulatory Orders Amlodipine Besylate [Norvasc -] 5 mg PO BID #60 tablet 07/27/16 - AMA Did Patient Leave Against Medical Advice: No
== END 2016-07-27 10:00 | disposition home or self-care (01) | DRG 897 ==
LOC: YASAS 15:26 → Y3N 18:02
PROVIDERS: ADMIT Internal Medicine; ATTEND Internal Medicine
PROC: HZ2ZZZZ Detoxification Services for Substance Abuse Treatment (ICD-10-PCS; principal; 2016-07-22)
DX: F19.230 Other psychoactive substance dependence with withdrawal, uncomplicated (principal); F10.230 Alcohol dependence with withdrawal, uncomplicated; F17.210 Nicotine dependence, cigarettes, uncomplicated; I10 Essential (primary) hypertension; D50.9 Iron deficiency anemia, unspecified; L30.9 Dermatitis, unspecified; M13.852 Other specified arthritis, left hip; M13.851 Other specified arthritis, right hip; M13.862 Other specified arthritis, left knee; M13.861 Other specified arthritis, right knee; R00.0 Tachycardia, unspecified; D15.1 Benign neoplasm of heart; Z87.898 Personal history of other specified conditions; Z98.61 Coronary angioplasty status
CPT/HCPCS: 36415; 80053; 81003; 81015; 82140; 85027; 85610; 86593; 86803; 93005; 93010

== ENCOUNTER 2018-08-18 12:28 | Emergency (ER) | payer OTHER ==
[2018-08-18 12:35] VITALS: BMI 24.3
[2018-08-18] MEDS ORDERED: SODIUM CHLORIDE 1,000 ML IV STA (13:16)
--- NOTE | 2018-08-18 13:42 | PDOC ---
History of Present Illness - General Chief Complaint: Pain, Acute Stated Complaint: ABD PAIN Time Seen by Provider: 08/18/18 12:32 - History of Present Illness Initial Comments: 08/18/18 13:38 68 M with h/o HTN, ETOH abuse, presenting to ED with abdominal pain. Pt states that this started a month ago. He endorses lack of appetite, denies any nausea or vomiting. Denies diarrhea/constipation. States that the pain is mostly R- sided. Denies any F/C. Denies CP/SOB. Pt states last drink was 2 days ago. Denies any tremors. No h/o withdrawal. Past History - Past Medical History Allergies/Adverse Reactions: Allergies Allergy/AdvReac Type Severity Reaction Status Date / Time No Known Allergies Allergy Verified 08/18/18 12:30 Home Medications: Ambulatory Orders Amlodipine Besylate [Norvasc -] 5 mg PO BID #60 tablet 07/27/16 Anemia: No Asthma: No Cancer: No Cardiac Disorders: No CVA: No COPD: No CHF: No Dementia: No Diabetes: No GI Disorders: No Disorders: No HTN: Yes Hypercholesterolemia: No Kidney Stones: No Liver Disease: No Seizures: No Thyroid Disease: No - Surgical History Abdominal Surgery: No Appendectomy: No Cardiac Surgery: No Cholecystectomy: No Lung Surgery: No Neurologic Surgery: No Orthopedic Surgery: No - Reproductive History Testicular Surgery: No - Suicide/Smoking/Psychosocial Hx Smoking History: Current every day smoker Have you smoked in the past 12 months: Yes Number of Cigarettes Smoked Daily: 6 Cigars Per Day: 0 Information on smoking cessation initiated: Yes 'Breaking Loose' booklet given: 08/19/16 Hx Alcohol Use: Yes (DAILY) Drug/Substance Use Hx: No Substance Use Type: Alcohol Hx Substance Use Treatment: Yes Abd/GI Specific PMHX - Complaint Specific PMHX Hepatitis: No Pancreatitis: No Review of Systems - Review of Systems Comments:: 08/18/18 13:42 GENERAL/CONSTITUTIONAL: No fever or chills. No weakness. HEAD, EYES, EARS, NOSE AND THROAT: No change in vision. No ear pain or discharge. No sore throat. CARDIOVASCULAR: No chest pain, no shortness of breath, no loss of consciousness RESPIRATORY: No cough, wheezing, or hemoptysis. GASTROINTESTINAL: + abdominal pain, No nausea, vomiting, diarrhea or constipation. GENITOURINARY: No dysuria, frequency, or change in urination. MUSCULOSKELETAL: No joint or muscle swelling or pain. No neck or back pain. SKIN: No rash NEUROLOGIC: No vertigo, no change in strength/sensation. ENDOCRINE: No increased thirst. No abnormal weight change. HEMATOLOGIC/LYMPHATIC: No anemia, easy bleeding, or history of blood clots. ALLERGIC/IMMUNOLOGIC: No hives or skin allergy. *Physical Exam - Vital Signs Last Vital Signs Temp Pulse Resp BP Pulse Ox 98.1 F 90 18 159/93 100 08/18/18 12:29 08/18/18 12:29 08/18/18 12:29 08/18/18 12:29 08/18/18 12:29 - Physical Exam Comments: 08/18/18 13:42 GENERAL: Awake, alert, and fully oriented, in no acute distress. HEAD: No signs of trauma EYES: PERRLA, EOMI, sclera anicteric, conjunctiva clear ENT: Auricles normal inspection, hearing grossly normal, nares patent, oropharynx clear without exudates. Moist mucosa NECK: Nontender, no stepoffs, Normal ROM, supple, no lymphadenopathy, JVD, or masses LUNGS: Breath sounds equal, clear to auscultation bilaterally. No wheezes, and no crackles HEART: Regular rate and rhythm, normal S1 and S2, no murmurs, rubs or gallops ABDOMEN: + RUQ tenderness, normoactive bowel sounds. No guarding, no rebound. No masses EXTREMITIES: Normal range of motion, no edema. No clubbing or cyanosis. No cords, erythema, or tenderness NEUROLOGICAL: Cranial nerves II through XII intact. 5/5 strength and sensation in all extremities, Normal speech, normal gait, normal cerebellar function SKIN: Warm, Dry, normal turgor, no rashes or lesions noted. Moderate Sedation - Procedure Monitoring Vital Signs: Procedure Monitoring Vital Signs Temperature 98.1 F 08/18/18 12:29 Pulse Rate 90 08/18/18 12:29 Respiratory Rate 18 08/18/18 12:29 Blood Pressure 159/93 08/18/18 12:29 O2 Sat by Pulse Oximetry (%) 100 08/18/18 12:29 ED Treatment Course - LABORATORY CBC & Chemistry Diagram: 08/18/18 13:30 08/18/18 13:30 - RADIOLOGY Radiology Studies Ordered: Category Date Time Status CHEST X-RAY PORTABLE* [RAD] Stat Radiology 08/18/18 13:14 Taken ABDOMEN US -LIMITED [US] Stat Ultrasound 08/18/18 13:15 Ordered Medical Decision Making - Medical Decision Making 08/18/18 13:42 68 M with RUQ pain. Will evaluate for cholecystitis. - Labs, lipase - RUQ sono 08/18/18 15:04 Labs notable for elevated LFTs and bili. However, this appears to be pt's baseline based on prior labs. Suspect 2/2 ETOH abuse. US negative for cholecystitis or cholelithiasis Pt expresses interest in detox Called [facility], who confirms bed availability. *DC/Admit/Observation/Transfer Diagnosis at time of Disposition: Alcohol abuse - Discharge Dispostion Condition at time of disposition: Stable - Referrals - Patient Instructions Additional Instructions: Proceed directly to [facility] detox center If you experience worsening pain, vomiting, fevers, or any other concerning symptoms, return to the ER immediately. - Post Discharge Activity - Attestations Physician Attestion: 08/18/18 15:06 I, Dr. Gregory Waldrop MD, attest that this document has been prepared under my direction and personally reviewed by me in its entirety. I further attest, that it accurately reflects all work, treatment, procedures and medical decision -making performed by me.
[2018-08-18 13:50] LABS: BASO % 0.4 % (0-2.0); EOS % 0.6 % (0-4.5); HEMATOCRIT 47.8 % (35.4-49); HEMOGLOBIN 15.9 GM/dl (11.7-16.9); LYMPH % 17.5 % (8-40); MCH 30.5 pg (25.7-33.7); MCHC 33.3 g/dl (32.0-35.9); MEAN CELL VOLUME 91.8 fl (80-96); MEAN PLT VOLUME 8.4 fl (7.5-11.1); MONO % 13.2 % (3.8-10.2); NEUT % 68.3 % (42.8-82.8); PLATELET COUNT 161 K/MM3 (134-434); RBC 5.21 M/mm3 (4.00-5.60); RDW 13.5 % (11.9-15.9); WHITE BLOOD COUNT 11.3 K/mm3 (4.0-10.8)
[2018-08-18 13:57] LABS: ALBUMIN 3.7 g/dl (3.4-5.0); ALK PHOS 124 U/L (45-117); ANION GAP 18 MMOL/L (8-16); BILIRUBIN,TOTAL 1.9 mg/dl (0.2-1); BLOOD UREA NITROGEN 19 mg/dl (7-18); CALCIUM 8.9 mg/dl (8.5-10); CHLORIDE 94 mmol/L (98-107); CO2 21 mmol/L (21-32); CREATININE 1.4 mg/dl (0.55-1.3); GLUCOSE,RANDOM 112 mg/dl (74-106); POTASSIUM 3.4 mmol/L (3.5-5.1); SGOT/AST 148 U/L (15-37); SGPT/ALT 159 U/L (13-61); SODIUM 133 mmol/L (136-145); TOT PROT 6.7 g/dl (6.4-8.2)
[2018-08-18 15:30] LABS: URINE APPEARANCE Clear; URINE BILIRUBIN 1+ (NEGATIVE); URINE COLOR Amber; URINE GLUCOSE (UA) Negative (NEGATIVE); URINE KETONE 3+ (NEGATIVE); URINE LEUK ESTERASE Negative (NEGATIVE); URINE NITRITE Negative (NEGATIVE); URINE PROTEIN Trace (NEGATIVE)
--- NOTE | 2018-08-18 15:51 | EKG ---
Test Reason : Blood Pressure : / mmHG Vent. Rate : 093 BPM Atrial Rate : 093 BPM P-R Int : 142 ms QRS Dur : 120 ms QT Int : 404 ms P-R-T Axes : 071 269 047 degrees QTc Int : 502 ms NORMAL SINUS RHYTHM RIGHT ATRIAL ENLARGEMENT PULMONARY DISEASE PATTERN RIGHT BUNDLE BRANCH BLOCK SEPTAL INFARCT , AGE UNDETERMINED INFERIOR INFARCT , AGE UNDETERMINED ABNORMAL ECG NO PREVIOUS ECGS AVAILABLE Confirmed by DAPHNEY ZHOU, ELIU ([id number]) on 08/18/2018 3:51:26 PM Referred By: Ros BOLDEN Confirmed By:ELIU SHELLEY MD
[2018-08-18 16:19] LABS: LIPASE 533 U/L (73-393)
[2018-08-18 16:28] VITALS: BP 140/92; PULSE 72; TEMP 98.4
[2018-08-18 17:52] LABS: COCAINE, UR NEGATIVE ng/ml (CUTOFF=300); METHADONE, UR NEGATIVE ng/ml (CUTOFF=300); OPIATES, URI NEGATIVE ng/ml (CUTOFF=300); PHENCYCLIDINE,URINE NEGATIVE ng/ml (CUTOFF=25); URINE AMPHETAMINES NEGATIVE ng/ml (CUTOFF=500); URINE BARBITURATES NEGATIVE ng/ml (CUTOFF=200); URINE BENZODIAZEPINES NEGATIVE ng/ml (CUTOFF=200)
== END 2018-08-18 16:42 | disposition other institution (70) ==
LOC: FER 12:28
PROC: 3E0337Z Introduction of Electrolytic and Water Balance Substance into Peripheral Vein, Percutaneous Approach (ICD-10-PCS; principal; 2018-08-18)
DX: R10.10 Upper abdominal pain, unspecified (principal); F17.210 Nicotine dependence, cigarettes, uncomplicated
CPT/HCPCS: 36415; 71045-TC-FY; 76705-TC; 80053; 80307; 81003; 82140; 82550; 83690; 83880; 84484; 85025; 93005; 96360; 99284-25; J7030